=== PATIENT | female | born 2000 | race Caucasian/White ===

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

== ENCOUNTER → 2019-06-24 09:01 | Outpatient (CLI) | payer MEDICARE, MEDICAID, OTHER ==
[2013-03-29 11:41] VITALS: BMI 43.1
== END | disposition home or self-care (01) ==
LOC: D.HCCARDIO 06-21 09:30 → D.HCCECHO 09:01 → D.HCCARDIO 10:00 → D.HCCECHO 10:00 → D.HCCARDIO 10:30
PROVIDERS: ATTEND Internal Medicine Cardiovascular Disease
DX: I35.1 Nonrheumatic aortic (valve) insufficiency (principal)

== ENCOUNTER → 2019-07-15 13:49 | Outpatient (CLI) | payer OTHER, MEDICAID ==
[2013-03-29 11:41] VITALS: BMI 43.1
[~2019-07-15 13:49] MED LIST changes: +PERCOCET 5-3251 TAB PO; +PRENAVITE1 TAB PO; +TUMS X-STR300 MG PO
[2019-07-21 14:18] VITALS: BMI 47.9
== END | disposition home or self-care (01) ==
LOC: D.LDO 13:49
PROVIDERS: ATTEND Student in an Organized Health Care Education/Training Program
DX: O26.90 Pregnancy related conditions, unspecified, unspecified trimester (principal)

== ENCOUNTER 2019-07-21 06:10 | Inpatient (IN) | payer OTHER, MEDICAID ==
[~2019-07-21] VITALS: Ht 162.6 cm; Wt 126.6 kg
[2019-07-21] VITALS (11 sets, daily range): BP systolic 117–143; BP diastolic 50–80; Ht 162.6 cm; Wt 126.6 kg
[~2019-07-21 06:10] MED LIST changes: -PERCOCET 5-3251 TAB PO; -PRENAVITE1 TAB PO; -TUMS X-STR300 MG PO
[2019-07-21] MEDS ORDERED: PRENAVITE1 TAB PO (08:02)
[2019-07-21] MEDS ORDERED: TUMS X-STR300 MG PO (08:02)
[2019-07-21 08:12] LABS: HEMATOCRIT 37.4 % (36.0-48.0); HEMOGLOBIN 12.2 g/dL (12-16); MCH 29.5 pg (26.0-34.0); MCHC 32.6 g/dL (31.0-37.0); MCV 90.6 fL (80.0-100.0); MEAN PLATELET VOLUME 10.3 fL (7.4-10.4); RBC 4.13 10x6/uL (4.00-5.40); WBC 15.3 10x3/uL (4.8-10.8)
[2019-07-21 08:19] LABS: APPEARANCE HAZY (CLEAR); BILIRUBIN NEGATIVE (NEGATIVE); COLOR STRAW (YELLOW); GLUCOSE NEGATIVE (NEGATIVE); KETONE NEGATIVE (NEGATIVE); NITRITE NEGATIVE (NEGATIVE); PROTEIN NEGATIVE (NEGATIVE); UROBILINOGEN NORMAL (NORMAL)
[2019-07-21 08:24] LABS: RED CELLS - URINE NONE SEEN /hpf (0-5)
[2019-07-21 08:25] LABS: BACTERIA MODERATE /hpf (NEGATIVE); EPITHELIAL CELLS 0-5 /hpf (0-5)
--- NOTE | 2019-07-21 10:01 | NUR ---
BABY BORN AT 0941
--- NOTE | 2019-07-21 11:48 | NUR ---
FUNDUS HARD AND FIRM. PALPATED AT UMBILICUS AND MIDLINE
--- NOTE | 2019-07-21 12:00 | NUR ---
MEETS ANESTHESIA DISCHARGE CRITERIA
--- NOTE | 2019-07-21 12:18 | NUR ---
RECEIVED PT FROM VIA BED TO ROOM 1278. BED LOCKED. PT AWAKE. AAO X 3. VSS. HRRR WITHOUT AUDIBLE MURMUR. BBS CLEAR. BS ABSENT. ABDOMEN SOFT. ABDOMINAL DRESSING DRY WITHOUT DRAINAGE NOTED. FUNDUS FIRM AT U/2. RUBRA LOCHIA MOD TO HEAVY AMT. NO CLOTS EXPRESSED ON FUNDAL MASSAGE. PERICARE DONE. CHUX AND PINK PAD CHANGED. RAMÍREZ TO GRAVITY DRAINING CLEAR, YELLOW URINE. SCDS ON BLE. PUMP ON. PIV OF NS WITH PITOCIN INFUSING AT 125 ML/HR VIA ALARIS PUMP. SITE CLEAR TO LEFT WRIST. PT DENIES PAIN. STATES UNABLE TO MOVE FROM HIPS DOWN. EPIDURAL PUMP ON AND INFUSING. EPIDURAL SITE CLEAR. PT HOB UP 45 DEGREES. LEMON-LOWER ELWHA SODA PROVIDED. ICE PACK TO INCISION. SR UP X 2. CALL LIGHT IN REAC. FAMILY WITH PT.
[2019-07-21 12:58] LABS: HEMATOCRIT 37.1 % (36.0-48.0); HEMOGLOBIN 12.1 g/dL (12-16); MCH 29.8 pg (26.0-34.0); MCHC 32.6 g/dL (31.0-37.0); MCV 91.4 fL (80.0-100.0); MEAN PLATELET VOLUME 10.4 fL (7.4-10.4); PLATELET COUNT 218 10x3/uL (130-400); RBC 4.06 10x6/uL (4.00-5.40); RDW 14.8 % (11.5-14.5); WBC 23.2 10x3/uL (4.8-10.8)
--- NOTE | 2019-07-21 13:30 | NUR ---
ACH TO ROOM WITH READY FOR TRANSPORT.
[2019-07-21 13:31] LABS: LYMPHOCYTES 2 % (15-50); MONOCYTES 2 % (2-11); NEUTROPHILS 96 % (40-80); PLATELET ESTIMATE NORMAL
--- NOTE | 2019-07-21 13:50 | NUR ---
FUNDUS FIRM AT U/2. RUBRA LOCHIA SMALL TO MOD AMT. NO CLOTS EXPRESSED ON FUNDAL MASSAGE. PERIPADS CHANGED. ICE PACK CONTINUES TO INCISION. DRESSING DRY WITHOUT DRAINAGE NOTED. CLEAR, YELLOW URINE NOTED IN RAMÍREZ.
--- NOTE | 2019-07-21 15:00 | NUR ---
PT SITTING UP IN BED 60 DEGREES. WATCHES TV. FUNDUS FIRM AT U/1. RUBRA LOCHIA SMALL AMT. NO CLOTS EXPRESSED PER FUNDAL MASSAGE. PERIPADS CHANGED. ABDOMINAL DRESSING DRY WITHOUT DRAINAGE NOTED. PT STATES PAIN WITH FUNDAL MASSAGE. STATES ZERO PAIN AT REST. PT INSTRUCTED ON INCENTIVE SPIROMETER. DEMONSTRATES UNDERSTANDING. PT COUGHS AND DEEP BREATHES. USE OF SPLINT PILLOW DONE PER PT.
--- NOTE | 2019-07-21 16:09 | NUR ---
PT SITTING UP IN BED. VISITS WITH VISITORS. DENIES PAIN.
--- NOTE | 2019-07-21 16:47 | NUR ---
PT SITTING UP IN BED. WATCHES TV. PT COUGHS AND C/O PAIN. STATES INCISIONAL PAIN OF "8" ON 0-10 PAIN SCALE. TORADOL 30 MG GIVEN SIVP OVER 2 MINUTES. PT INSTRUCTED ON MED. VERBALIZES UNDERSTANDING.
--- NOTE | 2019-07-21 17:00 | NUR ---
DR MARADIAGA ON UNIT. NOTIFIED OF CBC RESULTS, PT LAST TEMP, AMT OF LOCHIA. NO NEW ORDERS. VISITS WITH PT.
--- NOTE | 2019-07-21 18:28 | NUR ---
FUNDUS FIRM AT U/2. RUBRA LOCHIA MOD AMT. PERICARE DONE. CHUX, PINK PAD AND PERIPADS CHANGED. PT ABLE TO MOVE RIGHT LEG, BUT LEFT LEG NUMB. PT REPOSITONS TO HIGH RIZO'S POSITION. PT DECLINES REPOSITIONING TO ONE SIDE OR THE OTHER. PT COUGHS AND DEEP BREATHES. USES SPLINT PILLOW. ABDOMINAL DRESSING DRY WITHOUT DRAINAGE NOTED. FRESH ICE PACK TO INCISION. I/O COMPLETED. SCDS ON BLE. PUMP ON. PT DENIES NEEDS OR C/O. PT SISTER IN ROOM WITH PT COMPLETING PAPERWORK.
--- NOTE | 2019-07-21 20:05 | NUR ---
PATIENT SITTING UP IN BED. SISTER IS AT BEDSIDE. PATIENT STATES PAIN LEVEL IS 4 OUT OF 10. ASSESSMENT AND VITAL SIGNS DONE AT THIS TIME. RESPIRATIONS AT EASE. LUNG SOUNDS CLEAR IN ALL BURDICK. HEART REGULAR RATE AND RHYTHM. ABDOMEN SOFT AND TENDER TO TOUCH. BOWEL SOUNDS PRESENT IN ALL QUADRANTS. FUNDUS FIRM, MIDLINE, AND 1 BELOW UMBILICUS. SCANT AMOUNT OF LOCHIA NOTED ON MICHAEL PAD. DRESSING NOTED TO INCISION. DRESSING CLEAN, DRY, AND INTACT. INCISION IS UTERINE TRANSVERSE. RAMÍREZ CATHETER INTACT AND DRAINING YELLOW URINE TO GRAVITY. GENERALIZED EDEMA NOTED TO BUE. +1 EDEMA NOTED TO BLE. SCD'S ON BLE. SCD'S ON AND WORKING. IV TO L WRIST. IV PATENT, INFUSING PITOCIN @ 125 ML/HR. NO REDNESS OR EDEMA NOTED TO SITE. PATIENT INSTRUCTED ON USE OF INCENTIVE SPIROMETER. PATIENT DEMONSTRATED KNOWLEDGE ON USE. INSTRUCTED PATIENT ON DEEP BREATHING AND COUGHING. PATIENT DEMONSTRATED KNOWLEDGE. EPIDURAL CATHETER INTACT AND INFUSING VIA PUMP. PATIENT ABLE TO MOVE R LEG AND MOVE TOES ON BLE. UNABLE TO MOVE L LEG MUCH THE R LEG. DENIES ANY NEEDS AT THIS TIME. BED IN LOWEST POSITION AND ELEVATED AT 45 DEGREES, SIDE RAILS UP X 2, C/L AND WATER WITHIN REACH.
--- NOTE | 2019-07-21 21:05 | NUR ---
PATIENT SITTING UP IN BED. REQUESTS FOR JELLO. JELLO PROVIDED. EPIDURAL CATHETER INTACT AND INFUSING VIA PUMP. PATIENT DENIES ANY NEEDS AT THIS TIME. BED IN LOWEST POSITION AND HEAD ELEVATED AT 45 DEGREES, SIDE RAILS UP X 2, C/L AND WATER WITHIN REACH. SISTER AT BEDSIDE.
--- NOTE | 2019-07-21 22:05 | NUR ---
PATIENT SITTING UP IN BED WATCHING TV. SISTER AT BEDSIDE. STATES PAIN 3 OUT OF 10. EPIDURAL CATHETER INTACT AND INFUSING VIA PUMP. PATIENT DENIES ANY NEEDS AT THIS TIME. BED IN LOWEST POSITION AND HEAD ELEVATED AT 45 DEGREES, SIDE RAILS UP X 2, C/L AND WATER WITHIN REACH.
--- NOTE | 2019-07-21 23:03 | NUR ---
PATIENT SITTING UP IN BED WATCHNG TV. SISTER AT BEDSIDE. STATES PAIN 4 OUT OF 10. TORADOL 30 MG ADMINISTERED SLOW IVP. PATIENT TOLERATED WELL. FUNDUS MASSAGED. FUNDUS FIRM, MIDLINE, I BELOW UMBILICUS. SMALL AMOUNT OF LOCHIA NOTED ON MICHAEL PAD. MICHAEL PAD CHANGED. PATIENT REPOSITIONED TO L SIDE. EPIDURAL CATHETER INTACT AND INFUSING VIA PUMP. ICE PACK APPLIED TO INCISION. LEMON HAVASUPAI SODA PROVIDED TO PATIENT. PATIENT DENIES ANY FURTHER NEEDS. BED IN LOWEST POSITION, SIDE RAILS UP X 2, C/L AND WATER WITHIN REACH.
--- NOTE | 2019-07-22 00:03 | NUR ---
PATIENT LYING IN BED WITH EYES CLOSED. EASILY AROUSED. DENIES PAIN AT THIS TIME. EPIDURAL CATHETER INTACT AND INFUSING VIA PUMP. PATIENT DENIES ANY NEEDS. BED IN LOWEST POSITION WITH HEAD ELEVATED AT 30 DEGREES. SIDE RAILS UP X 2, C/L AND WATER WITHIN REACH.
--- NOTE | 2019-07-22 01:00 | NUR ---
PATIENT LYING QUIETLY IN BED WITH EYES CLOSED. EASILY AROUSED. DENIES PAIN AT THIS TIME. EPIDURAL CATHETER INTACT AND INFUSING VIA PUMP. BED IN LOWEST POSITION WITH HEAD ELEVATED AT 30 DEGREES, SIDE RAILS UP X 2, C/L AND WATER WITHIN REACH. PATIENT DENIES ANY NEEDS.
--- NOTE | 2019-07-22 02:06 | NUR ---
PATIENT LYING QUIETLY IN BED WITH EYES CLOSED. RESPIRATIONS AT EASE. NO SIGNS OF DISTRESS NOTED. BED IN LOWEST POSITION WITH HEAD ELEVATED AT 30 DEGREES, SIDE RAILS UP X 2, C/L AND WATER WITHIN REACH.
--- NOTE | 2019-07-22 03:05 | NUR ---
PATIENT LYING QUIETLY IN BED WITH EYES CLOSED. RESPIRATIONS AT EASE. NO SIGNS OF DISTRESS NOTED.EPIDURAL CATHETER INTACT AND INFUSING VIA PUMP. BED IN LOWEST POSITION, SIDE RAILS UP X 2, C/L AND WATER WITHIN REACH.
--- NOTE | 2019-07-22 04:06 | NUR ---
PATIENT LYING QUIETLY IN BED WITH EYES CLOSED. EASILY AROUSED. PATIENT DENIES PAIN AT THIS TIME. MICHAEL PAD CHANGED. PATIENT REPOSITIONED TO R SIDE. EPIDURAL CATHETER INTACT AND INFUSING VIA PUMP. ICE PACK APPLIED TO INCISION. PATIENT DENIES ANY FURTHER NEEDS. BED IN LOWEST POSITION AND HEAD ELEVATED AT 30 DEGREES, SIDE RAILS UP X 2, C/L AND WATER WITHIN REACH.
[2019-07-22 04:09] VITALS: BP 125/55
--- NOTE | 2019-07-22 05:06 | NUR ---
PATIENT LYING QUIETLY IN BED WITH EYES CLOSED. RESPIRATIONS AT EASE. EPIDURAL CATHETER INTACT AND INFUSING VIA PUMP. NO SIGNS OF DISTRESS NOTED. BED IN LOWEST POSITION WITH HEAD ELEVATED AT 30 DEGREES, SIDE RAILS UP X 2, C/L AND WATER WITHIN REACH.
--- NOTE | 2019-07-22 06:05 | NUR ---
PATIENT LYING IN BED WITH EYES CLOSED. EASILY AROUSED. PATIENT DENIES PAIN AT THIS TIME. MASSAGED FUNDUS, FUNDUS FIRM, MIDLINE, AND 1 BELOW UMBILICUS. SMALL AMOUNT OF LOCHIA NOTED ON PAD. MICHAEL PAD CHANGED. RAMÍREZ CATHETER BAG EMPTIED. OBTAINED 500 CC'S OF DARK YELLOW URINE. EPIDURAL CATHETER INTACT AND INFUSING VIA PUMP. PATIENT DENIES ANY NEEDS AT THIS TIME. BED IN LOWEST POSITION WITH HEAD ELEVATED AT 30 DEGREES, SIDE RAILS UP X 2, C/L AND WATER WITHIN REACH.
[2019-07-22 07:05] LABS: BASOPHILS 0.1 % (0-2); EOSINOPHILS 0.2 % (0-7); IMMATURE GRANULOCYTES 0.6 % (0-5); LYMPHOCYTES 16.2 % (15-50); MCH 29.6 pg (26.0-34.0); MCHC 32.3 g/dL (31.0-37.0); MCV 91.6 fL (80.0-100.0); MEAN PLATELET VOLUME 10.3 fL (7.4-10.4); MONOCYTES 11.4 % (2-11); NEUTROPHILS 71.5 % (40-80); PLATELET COUNT 199 10x3/uL (130-400); RDW 15.3 % (11.5-14.5)
[2019-07-22 07:08] LABS: HEMATOCRIT 28.5 % (36.0-48.0); HEMOGLOBIN 9.2 g/dL (12-16); RBC 3.11 10x6/uL (4.00-5.40); WBC 14.8 10x3/uL (4.8-10.8)
[2019-07-22 07:13] LABS: RAPID PLASMA REAGIN Non Reactive (Non Reactive)
--- NOTE | 2019-07-22 08:30 | NUR ---
DR BAEZ ON UNIT AND IN TO VISIT WITH PT. WILL WAIT TO PULL EPIDURAL UNTIL DR MARADIAGA HAS SEEN PATIENT.
--- NOTE | 2019-07-22 09:15 | NUR ---
DR MARADIAGA TO BEDSIDE, PT IS AWAKE AND ALERT AND RATES HER PAIN AT 0/10. ABDOMINAL BANDAGE REMOVED PER MD WITH USE OF ADHESIVE REMOVER TO DECREASE PT PAIN. BIKINI INCISION CLEAN AND DRY, DERMABOND USED. MD GOES OVER PAIN OF CARE FOR TODAY AND PT AND FAMILY VOICES UNDERSTANDING AND DENIES ANY QUESTIONS OR CONCERNS AT THIS TIME.
--- NOTE | 2019-07-22 09:45 | NUR ---
REGULAR BREAKFAST TRAY ORDERED AND BROUGHT IN FOR PT. ASSISTED WITH MOVING UP AND SITTING UP TO EAT. SISTER REMAINS AT BEDSIDE.
--- NOTE | 2019-07-22 10:30 | NUR ---
PT DENIES NAUSEA AND RATES PAIN AT 4/10. LARGE CUP OF ICE WITH COKE PER REQUEST.
--- NOTE | 2019-07-22 10:45 | NUR ---
dr santiago notified about post op pain med orders. Orders per order set for post op section.
--- NOTE | 2019-07-22 11:00 | NUR ---
ALL VISITORS GONE, IV SALINE LOCKED AND EPIDURAL PUMP TURNED OFF. PAIN MED GIVEN SCANNED TO EMAR. SHE UNDERSTANDS THAT UNTIL SHE IS ABLE TO FEEL BOTH LEGS WITHOUT COMPLAINT OF NUMBNESS THAN RAMÍREZ WOULD BE LEFT IN PLACE. MICHAEL CARE PER THIS RN, MICHAEL PAD CHANGED. SIDE RAILS UP X 2 WITH CALL LIGHT IN REACH.
--- NOTE | 2019-07-22 13:36 | NUR ---
PT ASKING FOR MORE CHICKEN STRIPS TO EAT, SHE ALSO ASK FOR FRIES BECAUSE SHE DID NOT LIKE HER SALAD. MESSAGE SENT THRU INNOBI TO LIFEMODELER.
--- NOTE | 2019-07-22 15:20 | NUR ---
CALLED TO ROOM, PT STATES THAT SHE IS ABLE TO FEEL BOTH LEGS AND MOVE THEM WITHOUT FEELING TINGLING. PAIN MED GIVEN SCANNED TO EMAR PRIOR TO GETTING UP FROM BED. RATES PAIN AT 3/10.
--- NOTE | 2019-07-22 15:25 | NUR ---
RAMÍREZ CATH REMOVED WITHOUT DIFFICULTY, 350 TO COLLECTION CANISTER AND TOTAL OF 900 ML DARK MOHAMUD URINE NOTED.
--- NOTE | 2019-07-22 15:30 | NUR ---
SHE IS ABLE TO MOVE SELF TO SITTING UPRIGHT ON SIDE OF THE BED. EPIDURAL REMOVED SLOWLY AND ADHESIVE REMOVER USED ON TAPE. PT GIVEN POSITIVE COACHING ON PROGRESS SHE HAS MADE. TO BATHROOM WITH HELP FROM THIS RN AND HER SISTER. PRIVACY GIVEN SO THAT SHE CAN VOID. BED LINENS CHANGED AT THIS TIME. WARM WET CLOTHS PLACE IN REACH SO THAT SHE IS ABLE TO CLEAN. REASSURED HER THAT SHE MAY OR MAY NOT VOID THIS FIRST TIME UP. WILL CALL FOR NURSE IF HELP IS NEEDED WHEN GOING BACK BED.
--- NOTE | 2019-07-22 16:08 | NUR ---
CALLED TO ROOM, PT MADE IT BACK TO BED WITH NO ASSISTANC NEEDED. ASSURED HER SHE WAS OK TO SIT ON SIDE OF THE BED TO EAT DINNER. LARGE CUP OF ICE WITH COKE PER REQUEST. CALL LIGHT IN REACH.
--- NOTE | 2019-07-22 16:30 | NUR ---
DIET TRAY BROUGHT PER DIETARY.
--- NOTE | 2019-07-22 17:04 | NUR ---
PT SISTER OUT TO DESK TO REQUEST SANDWICH TRAY, PT STATES SHE DOES NOT LIKE THE WAY THE BAR B QUE SHE ORDERED TASTE. SANDWICH TAKEN TO ROOM.
[2019-07-22 19:25] VITALS: BP 134/65
--- NOTE | 2019-07-22 19:25 | NUR ---
REC'D PT AA&O X 4 SITTING ON SOFA W/SISTER. PAIN AND NEEDS ASSESSED. PT CURRENTLY REPORTS ABD PAIN RATED 10/10. PERCOCET 10 AND MOTRIN BROUGHT TO ROOM AND ADMIN AT THIS TIME. SEE EMAR. PT DOESN'T WANT TO RETURN TO BED AT THIS TIME FOR SHIFT ASSESSMENT. PT ALOUD TO REMAIN ON SOFA. PT PLANS TO SHOWER. ALL BATHING ITEMS PROVIDED AND PT'S SISTER TO HELP W/SHOWER. BP OBTAINED AT THIS TIME. COMPLETE SHIFT ASSESMENT TO BE COMPLETED WHEN PT IS READY TO RETURN TO BED.
--- NOTE | 2019-07-22 19:45 | NUR ---
PT INTO THE SHOWER. SISTER AT SIDE FOR ASSISTANCE. BED LINENS CHANGED. TRASH, DINNER TRAYS AND BLUE BAG REMOVED FROM THE ROOM.
--- NOTE | 2019-07-22 20:00 | NUR ---
PT OUT OF SHOWER. PUTS HER OWN CLOTHING ON. PT DESIRES TO RETURN TO SITTING ON SOFA PER REQUEST.FRESH ICE WATER SERVED. DENIES FURTHER NEEDS AT THIS TIME.
--- NOTE | 2019-07-22 21:00 | NUR ---
ROUNDS MADE. PT REMAINS ON SOFA WATCHING TV W/HER SISTER. DENIES NEEDS. REPORTS PAIN 02/19.
--- NOTE | 2019-07-22 22:30 | NUR ---
THIS RN TO BEDSIDE. PT NOW IN BED WATCHING TV. SHIFT ASSESSMENT COMPLETED AT THIS TIME. SEE FLOWSHEET. PAIN ASSESSED. PT REPORTS PAIN 5/10 STILL. INFORMED SHE MAY HAVE PAIN MEDICATION AGAIN AT 2330. PT DECLINES OFFERS TO BRING HER ANYTHING TO EAT OR DRINK AT THIS TIME. BED LOW, SIDE RAILS UP X 2. CALL LIGHT AND PHONE AT PT'S SIDE.
--- NOTE | 2019-07-22 23:35 | NUR ---
ROUNDS MADE. PT LYING AWAKE IN BED WATCHING TV. PAIN AND NEEDS ASSESSED. PT REPORTS PAIN 2/10. PERCOCET 10/325MG PO GIVEN. SEE EMAR. VITAL SIGNS OBTAINED. SEE FLOWSHEET.
[2019-07-22 23:46] VITALS: BP 134/64
--- NOTE | 2019-07-23 00:04 | NUR ---
ROUNDS MADE. PT LYING IN BED AWAKE WATCHING TV. PAIN AND NEEDS ASSESSED. PT DENIES NEEDS AND RATES PAIN 2/10. NO FURTHER PAIN INTERVENTIONS NEEDED AT THIS TIME. SISTER REPORTS PT GOT UP TO VOID AGAIN AND SHE ASSISTED PT.
--- NOTE | 2019-07-23 01:41 | NUR ---
this rn to bedside w/scheduled motrin. pt currently resting w/eyes closed. resp even and unlabored. pt left undisturbed at this time. med returned to pyxis.
--- NOTE | 2019-07-23 04:00 | NUR ---
ROUNDS MADE FOR VITAL SIGNS AND PAIN WIND FARM SUPPORT SPECIALIST. PT WAKENED. PAIN ASSESSED. PT REPORTS PAIN 11/22. VITAL SIGNS OBTAINED. SEE FLOWSHEET.PERCOCET 10/325MG 1 TAB AND MOTRIN 600MG PO GIVEN. PT DENIES NEEDS AT THIS TIME. PLANS TO CONTINUE RESTING.
[2019-07-23 04:04] VITALS: BP 144/66
[2019-07-23 08:05] VITALS: BP 123/57
--- NOTE | 2019-07-23 08:16 | NUR ---
SITTING UP IN BED EATING REG DIET. ASSESSMENT DONE- VERBAL RESPONSES APPRO TO QUESTIONS. DENIES NEEDS.
--- NOTE | 2019-07-23 08:17 | NUR ---
SCANT LOCHIA NOTED ON PAD.
--- NOTE | 2019-07-23 09:26 | NUR ---
AMBULATING IN UNIT- TOLERATING WELL.
--- NOTE | 2019-07-23 11:05 | NUR ---
SITTING UP IN BEDSIDE CHAIR. TALKING WITH VISITOR.
--- NOTE | 2019-07-23 12:07 | NUR ---
dr santiago here to see pt. states that pt may discharge home when she desires.
--- NOTE | 2019-07-23 12:13 | NUR ---
REQUESTING PAIN MEDICATION- RATES PAIN A 5 ON SCALE OF 0-10. CO PAIN AT INCISION.
--- NOTE | 2019-07-23 14:26 | NUR ---
MEDS GIVEN -SEE EMAR. IV SALINE LOCK REMOVED- CATH TIP INTACT. PRESSURE HELD AND BANDAIDE APPLIED.
--- NOTE | 2019-07-23 14:52 | MORECARE ---
CASE MANAGEMENT DISCHARGE SUMMARY PATIENT: CHITO ELAINE UNIT: [id number] ADM DATE: 07/21/19 AGE: 18 : 98 SEX: F ROOM/BED: D.1278 AUTHOR: RICK VAZQUEZ PHYSICIAN: REFERRING PHYSICIAN: KATHLEEN MARADIAGA DO DATE OF SERVICE: 07/23/19 Discharge Plan Patient Name: CHITO ELAINE [facility] [facility] 2000 Planned Disposition: Home Anticipated Discharge Date: Discharge Date: Expected LOS: Initial Reviewer: [email or web address] Initial Review Date: 07/23/2019 Generated: 07/23/19 3:52 pm Patient Name: CHITO ELAINE Page [id number] at 1862 All edits/amendments must be made on the electronic document DICTATION DATE: 07/23/191451 FRAME AND SCRAP CRUSHER: TORREY 07/23/191451 RPT#: [id number] [place] DATE: STATUS: ADM IN [facility] [address] [place] [address] END OF REPORT
[2019-07-23] MEDS ORDERED: PERCOCET 5-3251 TAB PO (15:04)
--- NOTE | 2019-07-23 15:08 | MORECARE ---
CASE MANAGEMENT DISCHARGE SUMMARY PATIENT: CHITO ELAINE UNIT: [id number] ADM DATE: 07/21/19 AGE: 18 : 98 SEX: F ROOM/BED: D.1278 AUTHOR: RICK VAZQUEZ PHYSICIAN: REFERRING PHYSICIAN: KATHLEEN MARADIAGA DO DATE OF SERVICE: 07/23/19 Discharge Plan Patient Name: CHITO ELAINE Facility: [facility]:[place] : 2000 Planned Disposition: Home Anticipated Discharge Date: Discharge Date: Expected LOS: Initial Reviewer: [email or web address] Initial Review Date: 07/23/2019 Generated: 07/23/19 4:07 pm Comments DCP- Discharge Planning Updated by [email or web address]: Gina Wang on 07/23/19 2:[address] Patient Name: CHITO ELAINE Admission Status: Elective Accout number: [id number] Admission Date: 07-21-2019 : 2000 Admission Diagnosis: Attending: ELIAS Current LOS: 2 Anticipated DC Date: Planned Disposition: Home Primary Insurance: [facility] PPO Discharge Planning Comments: DC PLAN: HOME WITH FATHER AND STEP MOTHER. ADDRESS: [address] [place] [address] PHONE NUMBER: [phone] DC NEEDS: STATES NO NEEDS. TRANSPORTATION: YES HER FATHER WIC: HAS ALREADY APPLIED MEDICAID: YES, APPLIED HERE. CAR SEAT: YES FEEDING PLAN: BOTTLES BABY NAME: MARQUISE ELAINE FOB: STATES DOESN'T KNOW MOB: CHITO ELAINE, LIVES WITH HER DAD AND STEP MOM. 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 STENCILER: AVINASH CARE: NOT UNTIL APPROX 8 MONTHS OF BECAUSE SHE DID NOT KNOW SHE WAS . SOFTWARE TRAINER IS DR. MARADIAGA SUPPLIES: CLOTHES, BOTTLES, CRIB, CAR SEAT, DIAPERS. WATER SOURCE: WELL HEAT SOURCE: WOOD/ELECTRIC AIR CONDITIONING: WINDOW UNIT DRUG, ALCOHOL OR TOBACCO USE IN THE HOME: STATES NO TO ALL EXCEPT TOBACCO USE. STATES FATHER SMOKES BUT DOES SO OUTSIDE. CM MET WITH MOB REGARDING DC PLANNING/NEEDS. MOB SISTER WAS ALSO IN THE ROOM. THE FAMILY STATES L[place]IS HAS DOWN SYNDROM AND SOME OTHER MEDICAL PROBLEMS. MOB STATES PLANS TO DC TO HOME WITH HER DAD TRISHA AND STEP-MOM AISLINN WHERE SHE LIVES. SHE STATES THE INFANT IS CURRENTLY AT [facility] IN [place], [place]. SHE STATES SHE DOES NOT KNOW WHO THE FOB IS. HER DAD AND STEP -MOM WILL TAKE HER AND INFANT TO DOCTOR APPOINTMENTS AND WILL HELP CARE FOR THE INFANT. THE HOME ENVIRONMENT IS A SAFE PLACE ACCORDING TO PATIENT AND HER SISTER RAY. IT IS STATED THAT THEY HAVE ALL SUPPLIES FOR THE INFANT EXCEPT FORMULA, BUT DO NOT KNOW WHAT TYPE OF FORMULA. I GAVE PATIENT AND HER FAMILY LISTS OF RESOURCES FOR HELP WITH BABY SUPPLIES. DENIES USE OF DRUGS, ALCOHOL OR TOBACCO IN THE HOME. PATIENT FATHER SMOKES CIGARETTES BUT DOES SO OUTSIDE. NO NEEDS AT THIS TIME. CM WILL FOLLOW AND ASSIST NEEDED. Resistance Welder: Gina LUO export: 07/23/19 1:52 Patient Name: CHITO ELAINE Page [id number] at 1508 All edits/amendments must be made on the electronic document DICTATION DATE: 07/23/191506 LINEN SUPERVISOR: TORREY 07/23/191506 RPT#: [id number] DC DATE: STATUS: ADM IN [facility] [address] [place] [address] END OF REPORT
--- NOTE | 2019-07-23 15:16 | MORECARE ---
CASE MANAGEMENT DISCHARGE SUMMARY PATIENT: CHITO ELAINE UNIT: [id number] ADM DATE: 07/21/19 AGE: 18 : 98 SEX: F ROOM/BED: D.1278 AUTHOR: RICK VAZQUEZ PHYSICIAN: REFERRING PHYSICIAN: KATHLEEN MARADIAGA DO DATE OF SERVICE: 07/23/19 Discharge Plan Patient Name: CHITO ELAINE Facility: [facility]:[place] : 2000 Planned Disposition: Home Anticipated Discharge Date: Discharge Date: Expected LOS: Initial Reviewer: [email or web address] Initial Review Date: 07/23/2019 Generated: 07/23/19 4:16 pm Comments DCP- Discharge Planning Updated by [email or web address]: Gina Wang on 07/23/19 2:[address] Patient Name: CHITO ELAINE Admission Status: Elective Accout number: [id number] Admission Date: 07-21-2019 : 2000 Admission Diagnosis: Attending: ELIAS Current LOS: 2 Anticipated DC Date: Planned Disposition: Home Primary Insurance: [facility] PPO Discharge Planning Comments: DC PLAN: HOME WITH FATHER AND STEP MOTHER. ADDRESS: [address] [place] [address] PHONE NUMBER: [phone] DC NEEDS: STATES NO NEEDS. TRANSPORTATION: YES HER FATHER WIC: HAS ALREADY APPLIED MEDICAID: YES, APPLIED HERE. CAR SEAT: YES FEEDING PLAN: BOTTLES BABY NAME: MARQUISE ELAINE FOB: STATES DOESN'T KNOW MOB: CHITO ELAINE, LIVES WITH HER DAD AND STEP MOM. 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 HR ANALYST: AVINASH CARE: NOT UNTIL APPROX 8 MONTHS OF BECAUSE SHE DID NOT KNOW SHE WAS . CART PUSHER IS DR. MARADIAGA SUPPLIES: CLOTHES, BOTTLES, CRIB, CAR SEAT, DIAPERS. WATER SOURCE: WELL HEAT SOURCE: WOOD/ELECTRIC AIR CONDITIONING: WINDOW UNIT DRUG, ALCOHOL OR TOBACCO USE IN THE HOME: STATES NO TO ALL EXCEPT TOBACCO USE. STATES FATHER SMOKES BUT DOES SO OUTSIDE. CM MET WITH MOB REGARDING DC PLANNING/NEEDS. MOB SISTER WAS ALSO IN THE ROOM. THE FAMILY STATES [place] HAS DOWN SYNDROM AND SOME OTHER MEDICAL PROBLEMS. MOB STATES PLANS TO DC TO HOME WITH HER DAD TRISHA AND STEP-MOM AISLINN WHERE SHE LIVES. SHE STATES THE INFANT IS CURRENTLY AT [facility] IN [place], [place]. SHE STATES SHE DOES NOT KNOW WHO THE FOB IS. HER DAD AND STEP -MOM WILL TAKE HER AND INFANT TO DOCTOR APPOINTMENTS AND WILL HELP CARE FOR THE INFANT. THE HOME ENVIRONMENT IS A SAFE PLACE ACCORDING TO PATIENT AND HER SISTER RAY. IT IS STATED THAT THEY HAVE ALL SUPPLIES FOR THE INFANT EXCEPT FORMULA, BUT DO NOT KNOW WHAT TYPE OF FORMULA. I GAVE PATIENT AND HER FAMILY LISTS OF RESOURCES FOR HELP WITH BABY SUPPLIES. DENIES USE OF DRUGS, ALCOHOL OR TOBACCO IN THE HOME. PATIENT FATHER SMOKES CIGARETTES BUT DOES SO OUTSIDE. NO NEEDS AT THIS TIME. CM WILL FOLLOW AND ASSIST NEEDED. Supervisor Counseling And Guidance: Gina LUO export: 07/23/19 2:08 Patient Name: CHITO ELAINE Page [id number] at 1516 All edits/amendments must be made on the electronic document DICTATION DATE: 07/23/191515 SALES INCENTIVE ANALYST: TORREY 07/23/191515 RPT#: [id number] DC DATE: STATUS: ADM IN [facility] [address] [place] [address] END OF REPORT
--- NOTE | 2019-07-23 15:31 | NUR ---
DISCHARGE INST VERBAL AND WRITTEN GIVEN TO PT AND HER SISTER. AWHONN INFO SHEET GIVEN AND EXPLAINED. SEE SIGNED INST SHEET GIVEN. PT HEALTH SUMMARY GIVEN. SCRIPT FOR PERCOCET GIVEN WITH PT MED REC. APPOINTMENT CARD GIVEN. PT DENIES QUESTIONS.
--- NOTE | 2019-07-23 15:40 | NUR ---
pt denies questions concerning discharge instruction. drug data info on percocet given. to auto via w/c with family. stable
--- NOTE | 2019-07-26 16:17 | MORECARE ---
CASE MANAGEMENT DISCHARGE SUMMARY PATIENT: CHITO ELAINE UNIT: [id number] ADM DATE: 07/21/19 AGE: 18 : [birth year] SEX: F ROOM/BED: D.1278 AUTHOR: RICK VAZQUEZ PHYSICIAN: REFERRING PHYSICIAN: KATHLEEN MARADIAGA DO DATE OF SERVICE: 07/26/19 Discharge Plan Patient Name: CHITO ELAINE Facility: [facility]:[place] : 2000 Planned Disposition: Home Anticipated Discharge Date: Discharge Date: 07/23/2019 Expected LOS: Initial Reviewer: [email or web address] Initial Review Date: 07/23/2019 Generated: 07/26/19 5:17 pm Comments DCP- Discharge Planning Updated by [email or web address]: Gina Wang on 07/23/19 2:[address] Patient Name: CHITO ELAINE Admission Status: Elective Accout number: [id number] Admission Date: 07-21-2019 : 2000 Admission Diagnosis: Attending: ELIAS Current LOS: 2 Anticipated DC Date: Planned Disposition: Home Primary Insurance: [facility] PPO Discharge Planning Comments: DC PLAN: HOME WITH FATHER AND STEP MOTHER. ADDRESS: [address] [place] [address] PHONE NUMBER: [phone] DC NEEDS: STATES NO NEEDS. TRANSPORTATION: YES HER FATHER WIC: HAS ALREADY APPLIED MEDICAID: YES, APPLIED HERE. CAR SEAT: YES FEEDING PLAN: BOTTLES BABY NAME: MARQUISE ELAINE FOB: STATES DOESN'T KNOW MOB: CHITO ELAINE, LIVES WITH HER DAD AND STEP MOM. 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 MARADIAGA SUPPLIES: CLOTHES, BOTTLES, CRIB, CAR SEAT, DIAPERS. WATER SOURCE: WELL HEAT SOURCE: WOOD/ELECTRIC AIR CONDITIONING: WINDOW UNIT DRUG, ALCOHOL OR TOBACCO USE IN THE HOME: STATES NO TO ALL EXCEPT TOBACCO USE. STATES FATHER SMOKES BUT DOES SO OUTSIDE. CM MET WITH MOB REGARDING DC PLANNING/NEEDS. MOB SISTER WAS ALSO IN THE ROOM. THE FAMILY STATES MOB HAS DOWN SYNDROM AND SOME OTHER MEDICAL PROBLEMS. MOB STATES PLANS TO DC TO HOME WITH HER DAD TRISHA AND STEP-MOM AISLINN WHERE SHE LIVES. SHE STATES THE IS CURRENTLY AT [facility] IN [place], [place]. SHE STATES SHE DOES NOT KNOW WHO THE FOB IS. HER DAD AND STEP -MOM WILL TAKE HER AND TO DOCTOR APPOINTMENTS AND WILL HELP CARE FOR THE . THE HOME ENVIRONMENT IS A SAFE PLACE ACCORDING TO PATIENT AND HER SISTER RAY. IT IS STATED THAT THEY HAVE ALL SUPPLIES FOR THE EXCEPT FORMULA, BUT DO NOT KNOW WHAT TYPE OF FORMULA. I GAVE PATIENT AND HER FAMILY LISTS OF RESOURCES FOR HELP WITH BABY SUPPLIES. DENIES USE OF DRUGS, ALCOHOL OR TOBACCO IN THE HOME. PATIENT FATHER SMOKES CIGARETTES BUT DOES SO OUTSIDE. NO NEEDS AT THIS TIME. CM WILL FOLLOW AND ASSIST NEEDED. Airframe Design Engineer: Gina LUO export: 07/23/19 2:16 Patient Name: CHITO ELAINE Page [id number] at 1617 All edits/amendments must be made on the electronic document DICTATION DATE: 07/26/191616 CABLE LACER: TORREY 07/26/191616 RPT#: [id number] DC DATE:07/23/19 STATUS: DIS IN [facility] [address] [place] [address] END OF REPORT
--- NOTE | 2019-08-20 12:26 | OP ---
PATIENT NAME: CHITO ELAINE MEDICAL RECORD: [id number] LOCATION:[id number] ADMISSION DATE:07/21/19 SURGEON: KATHLEEN MARADIAGA DO DATE OF OPERATION: 07/21/2019 PREOPERATIVE DIAGNOSES: Primary , breech presentation/elective . POSTOPERATIVE DIAGNOSES: Primary , breech presentation/elective . PRIMARY SURGEON: Kathleen Maradiaga MD OPERATIONS SPECIALIST SURGEON: Not applicable. ANESTHESIA: Dr. Benavides. PROCEDURE: Primary low transverse section via Pfannenstiel incision. FINDINGS: Male , weight 8 pounds 11.6 ounces, delivered in breech presentation, Apgars 2 and 8. Polyhydramnios. Normal appearing bilateral fallopian tubes, bilateral ovaries and uterus. Uterine atony following delivery, likely due to over distention. Extra 10 units of Pitocin added to the Pitocin that was already running. Methergine 0.2 mg given IM with improvement in uterine tone. SPECIMENS: Placenta and cord. ESTIMATED BLOOD LOSS: 1200 cc. IV FLUIDS: 2 liters. URINE OUTPUT: 650 cc clear urine. COMPLICATIONS: Uterine atony resolved with medication. CONDITION: Stable. PROCEDURE IN DETAIL: The risks, benefits, alternatives and indications of the procedure were discussed with the patient and family. She voiced understanding and signed the consent. The patient and family were aware and general anesthesia can affect the fetus and desired general anesthesia due to patient's difficulty with pain and developmental delay. The patient was taken to the OR where general anesthesia was administered and found to be adequate. She was placed in the dorsal supine position with a leftward tilt. She was prepped and draped in the normal sterile fashion. A Pfannenstiel skin incision was made with a scalpel and carried down to the underlying layer of the fascia. The fascia was incised in the midline and extended laterally. The rectus muscle was dissected off the fascia bluntly superiorly and inferiorly. The rectus muscle was in the midline down to the level of the peritoneum. The peritoneum was identified and noted to be free of adherent bowel and entered bluntly. The peritoneum was further with gentle traction. Bladder blade was then inserted and the uterus was incised in a transverse fashion in the lower uterine segment. The uterus OPERATIVE REPORT [id number] CHITO ELAINE was extended with cephalad and caudad traction. The infant was delivered in breech presentation without difficulty. Mouth and nose were suctioned. Cord was clamped and cut. The was handed off to awaiting pediatricians. The placenta was manually removed. The uterus was exteriorized and a moist lap was used to assure complete removal of placenta membranes. The hysterotomy was closed with 0 Vicryl in a running locked fashion with double layer closure with good hemostasis noted. The uterus was noted to be atonic likely due to over distention from polyhydramnios and large for gestational age fetus. An extra 10 units of Pitocin was added to the Pitocin that was already running at the time and 0.2 mg of Methergine was given IM with improvement in uterine tone. Uterus, tubes, and ovaries were returned back to the abdominal cavity and a moist laparotomy sponge was used to assure complete removal of blood clots and fluid from the abdominal cavity. The hysterotomy was reinspected and noted to be hemostatic. The rectus muscle was closed with 2-0 Monocryl in a running fashion with good hemostasis. The fascial incision was closed with 0 Vicryl in a running fashion with good hemostasis. The subcutaneous fat was closed with 2-0 plain in a running fashion with good hemostasis. The skin was closed in a subcuticular fashion with 3-0 Monocryl and Dermabond, covering. All needle, lap, sponge and instrument counts were correct times 2. The patient tolerated the procedure well. She received an epidural for pain management following the procedure and she was taken to the recovery room in stable condition. TRANSINT:[id number] Voice Confirmation ID: [id number] DOCUMENT ID: [id number] KATHLEEN MARADIAGA DO at 1226 CC: [id number] DICTATION DATE: 07/21/19 1108 ACTIVE DIRECTORY ENGINEER: 07/21/19 1229 DIS IN 07/23/19 [place] [id number] [place] [id number]
== END 2019-07-23 16:00 | disposition home or self-care (01) | DRG 788 ==
LOC: D.LD 06:10 → D.SDCHOLD 08:30 → D.LD 12:02
PROVIDERS: ADMIT Student in an Organized Health Care Education/Training Program; ATTEND Student in an Organized Health Care Education/Training Program
PROC: 10D00Z1 Extraction of Products of Conception, Low, Open Approach (ICD-10-PCS; principal; 2019-07-21 08:30)
DX: O24.429 Gestational diabetes mellitus in childbirth, unspecified control (principal); Z3A.39 39 weeks gestation of pregnancy; Z37.0 Single live birth; O99.824 Streptococcus B carrier state complicating childbirth; O75.89 Other specified complications of labor and delivery; O32.1XX0 Maternal care for breech presentation, not applicable or unspecified

== ENCOUNTER → 2020-07-24 09:09 | Outpatient (CLI) | payer OTHER, MEDICAID ==
[2019-07-21 14:18] VITALS: BMI 47.9
[~2020-07-24 09:09] MED LIST changes: +PERCOCET 5-3251 TAB PO; +PRENAVITE1 TAB PO; +TUMS X-STR300 MG PO
== END | disposition home or self-care (01) ==
LOC: D.HCCECHO 06-27 09:30
PROVIDERS: ATTEND Internal Medicine Cardiovascular Disease
DX: I35.0 Nonrheumatic aortic (valve) stenosis (principal)